=== PATIENT | female | born 1990 | race Caucasian/White ===

== ENCOUNTER 2020-10-20 13:21 | Emergency (ER) | payer OTHER, SELFPAY ==
[2020-10-20 13:27] VITALS: BP 129/101; PULSE 116; RESP 22; TEMP 36.4; O2SAT 96
[2020-10-20 13:37] VITALS: RESP 20
--- NOTE | 2020-10-20 14:16 | PC.NURSE ---
pt signed out AMA - states she doesn't need to be seen. Explained risks of leaving. Voiced understanding. Removed IV and placed dressing to left AC. Pt ambulated with a steady gait with friend out to WR.
== END 2020-10-20 14:15 | disposition left against medical advice (07) ==
PROVIDERS: PCP Emergency Medicine
DX: T50.901A Poisoning by unspecified drugs, medicaments and biological substances, accidental (unintentional), initial encounter (principal)
CPT/HCPCS: 99199